=== PATIENT | male | born 1975 | race Hispanic/Latino ===

== ENCOUNTER 2018-01-12 22:52 | Emergency (ER) | payer SELFPAY ==
[2018-01-12] MEDS ORDERED: Ibuprofen 800 MG TAB ONE (23:44)
--- NOTE | 2018-01-13 07:12 | RAD ---
RADIOGRAPH RIGHT FOOT 3 VIEWS: Date: 01/12/18 HISTORY: 42-year-old male status post injury, resulting in swelling. FINDINGS: There is no fracature or dislocation. There is pes planus. No destructive osseous lesion. IMPRESSION: 1. No fracture. 2. Pes planus. POS: [facility]
== END 2018-01-13 00:05 | disposition home or self-care (01) ==
LOC: MADERS 22:52
DX: S93.401A Sprain of unspecified ligament of right ankle, initial encounter (principal); S90.31XA Contusion of right foot, initial encounter; W17.89XA Other fall from one level to another, initial encounter; Y93.01 Activity, walking, marching and hiking